=== PATIENT | male | born 1960 | race Caucasian/White ===

== ENCOUNTER → 2016-10-12 | Outpatient (CLI) | payer OTHER | LOC: HEART CORB 10-05 10:45 | DX: R07.2 Precordial pain (principal) | CPT/HCPCS: 78452; A9502; J0280; J2785 ==

== ENCOUNTER → 2016-11-02 | Outpatient (CLI) | payer OTHER | LOC: KOH-I 09:53 | DX: R42 Dizziness and giddiness (principal); R51 Headache; J32.9 Chronic sinusitis, unspecified | CPT/HCPCS: 70551 ==